=== PATIENT | female | born 1985 | race Native Hawaiian/Other Pacific Islander ===

== ENCOUNTER 2016-11-13 08:04 | Day surgery (SDC) | payer BC ==
[2016-11-09 09:26] VITALS: BMI 29.5
[2016-11-13] MEDS ORDERED: Midazolam 2 MG/2 ML VIAL ONE (11:04)
[2016-11-13] MEDS ORDERED: Propofol 10 mg/ml Inj (20 ML) ONE (11:04)
[2016-11-13] MEDS ORDERED: Lidocaine Hydrochloride 10 ML INJ ONE (11:04)
[2016-11-13] MEDS ORDERED: Bupivacaine HCl 0.25% PF (10 ml) Inj ONE (11:07)
[2016-11-13] MEDS ORDERED: Lactated Ringer's 1,000 ML IV ONE ×2 (11:30→14:00)
[2016-11-13] MEDS ORDERED: HYDROmorphone 0.5 mg/0.5 ml ISec IVP PRN (12:36)
[2016-11-13 14:54] VITALS: BP 112/70; PULSE 70; RESP 18; TEMP 97.7; O2SAT 98
--- NOTE | 2016-11-13 20:03 | PCM.SURG1 ---
Surgeon's Initial Post Op Note - Surgeon's Notes Surgeon: Sanaz Ledesma MD Cabinet Professional: Lane Angulo MD Type of Anesthesia: General Endo Pre-Operative Diagnosis: Multiparity desires permanet tubal sterilzation Operative Findings: normal appearing uterus and ovaries. Bilateral fallopian tubes adherent to ovaries on respective side. Bowel adhesions noted to adnexa and pelvic side wall. Dr Lane Angulo was regional vice president surgical sales and present for entire case and essential in gaining entry, retraction, exposure, removing specimens, lysisng adhesions, closing all layers Post-Operative Diagnosis: same as above, pelvic adhesionss Operation Performed: Laparascopic bilateral salpingectomy, lysis of adhesions Specimen/Specimens Removed: Right and left fallopian tube Estimated Blood Loss: EBL {In ML}: 10 Blood Products Given: N/A Drains Used: No Drains Date of Surgery/Procedure: 11/13/16 Time of Surgery/Procedure: 11:00
--- NOTE | 2016-11-20 21:10 | OP ---
PROCEDURE DATE: 11/13/2016 PREOPERATIVE DIAGNOSIS: Multiparus desiring permanent tubal sterilization. POSTOPERATIVE DIAGNOSES: Multiparus desiring permanent tubal sterilization and noted to have pelvic adhesions. OPERATION PROCEDURE: Laparoscopic bilateral salpingectomy, lysis of adhesions,l SURGEON: Sanaz Ledesma MD K [address] POLICE OFFICER: Lane Angulo MD TYPE OF ANESTHESIA: General endotracheal. OPERATING FINDINGS: Normal appearing uterus, tubes, and ovaries, bilateral fallopian tube appeared normal, but were adherent to the ovaries on respective sidewall. Adhesions noted to adnexa and pelvic . Lane Angulo MD, was surgical assistance and present for entire case. Assisted with entry, retraction, exposure, removing specimens, lysing adhesions, closing all layers. SPECIMEN REMOVED: Right and left fallopian tubes. ESTIMATED BLOOD LOSS: 10 mL. BLOOD PRODUCTS: None. COMPLICATIONS: None. DESCRIPTION OF PROCEDURE: The patient was taken to the operating room where she was given general anesthesia. Once found to be adequate, she was placed on the operating table in the dorsal supine position with legs supported using stirrups. The patient was then prepped and draped in the usual sterile fashion. A time-out confirmed correct patient and correct procedure. The bimanual exam was performed with the above mentioned findings. A Thomas catheter was inserted into the urethra to drain the bladder. The surgeon then re-gloved and attention was then turned to the abdomen. A 0.5 Marcaine was given infraumbilically and a 5 mm skin incision was made with the scalpel. The skin was then tented up and a Veress needle was then inserted. Confirmation was placed after a saline test. The gas was then connected and abdomen was then insufflated to pressure of mmHg. The laparoscopic trocar was inserted under visualization with the camera. Please refer to operative findings as noted. Right and left lower quadrant trocars were then inserted under direct visualization after administering local anesthesia. Following this the patient was then placed in Trendelenburg position and a blunt probe was used and carefully dissected the overlying bowel adhesions over the operative site. There was good hemostasis noted. Following this the right fallopian tube was then grasped with the Sukhdev clamp and the entire tube was removed from the fimbriated end to the cornua using the LigaSure device. There was good hemostasis noted. Similar procedure was done on the opposite tube after the lysis from the fallopian tubes and the ovary were carefully dissected bluntly. There was good hemostasis noted. The gas was been desulfated with good hemostasis noted. All instruments removed including the trocars under direct visualization. All instrument removed. The abdomen was desulfated. The skin was reapproximated and closed with 4-0 Monocryl running subcuticular fashion . At the end of the procedure all needle, sponge, and instrument counts were noted x2. The patient tolerated the procedure well and was transferred to recovery room in stable condition. Sanaz Ledesma MD
== END 2016-11-13 14:58 | disposition home or self-care (01) ==
LOC: C.SDS 08:04
PROVIDERS: ATTEND Obstetrics & Gynecology
DX: Z30.2 Encounter for sterilization (principal); N73.6 Female pelvic peritoneal adhesions (postinfective)
CPT/HCPCS: 49329; 58670; 88302; C2615; J1170; J2250; J2405; J2704; J2765; J3010; J7120